=== PATIENT | female | born 1975 | race Caucasian/White ===

== ENCOUNTER → 2022-08-11 13:26 | Day surgery (SDC) | payer BC, SELFPAY ==
[2022-08-11 13:40] VITALS: BP 114/64; PULSE 87; RESP 18; TEMP 36.8; O2SAT 99
[2022-08-11 14:19] LABS: Basophils % 2.8 %; Eosinophils # 0.1 10^3/uL (0.0-0.8); Eosinophils % 7.3 %; Hematocrit 37.6 % (37.0-47.0); Hemoglobin 12.2 g/dL (11.5-15.3); Lymphocytes # 0.3 10^3/uL (0.8-4.8); Lymphocytes % 23.9 %; Mean Corpuscular HGB Conc 32.4 g/dL (30.0-36.0); Mean Corpuscular Hemoglobin 29.3 pg (28.0-34.0); Mean Corpuscular Volume 90.2 fl (81-99); Mean Platelet Volume 11.3 fL (7.4-10.4); Monocytes # 0.1 10^3/uL (0.2-0.9); Monocytes % 8.3 %; Neutrophils % 46.7 %; Nucleated Red Blood Cells % 0 %; Platelet Count 111 10^3/cmm (130-400); Red Blood Count 4.17 10^6/uL (4.1-5.3); Red Cell Distribution Width 11.8 % (12.1-15.1); White Blood Count 1.1 10^3/uL (4.0-10.0)
[2022-08-11 14:25] LABS: Albumin Level 4.1 g/dL (3.5-5.2); Alkaline Phosphatase 64 U/L (35-105); Blood Urea Nitrogen 8 mg/dL (6-20); Calcium 8.4 mg/dL (8.5-10.5); Carbon Dioxide 25 mmol/L (22-29); Chloride 100 mmol/L (98-107); Globulin 2.6 g/dL (1.3-4.6); Glomerular Filtration Rate 133.4 mL/min (90-130); Glucose 99 mg/dL (65-115); Osmolality Calculated 278 mOsm/kg (285-295); Sodium 135 mmol/L (136-145); Total Bilirubin 0.5 mg/dL (0.15-1.2); Total Protein 6.7 g/dL (6.6-8.7)
[2022-08-11 14:27] LABS: Alanine Aminotransferase 61 U/L (0-33); Anion Gap 14.4 (5-19); Aspartate Amino Transferase 36 U/L (0-32); Potassium 4.4 mmol/L (3.5-5.1)
[2022-08-11 14:48] LABS: Neutrophils # 0.51 10^3/uL (1.8-7.7); Slide Review Slide Review Perform
--- NOTE | 2022-08-11 15:21 | PC.NURSE ---
Pt to GI infusions for PICC dressing change and lab draw. Critical neutrophil count 0.51 called to Patricia at [facility]. Information to be relayed to Dr. Loya. No new orders at this time.
== END ==
PROVIDERS: PCP Internal Medicine; Visit Provider Internal Medicine Medical Oncology
DX: C50.412 Malignant neoplasm of upper-outer quadrant of left female breast (principal); E03.9 Hypothyroidism, unspecified; Z51.11 Encounter for antineoplastic chemotherapy
CPT/HCPCS: 36592; 80053; 85025

== ENCOUNTER 2022-08-20 11:38 | Outpatient (RCR) | payer BC, SELFPAY ==
[2022-08-17 10:15] VITALS: BP 114/84; PULSE 85; RESP 18; TEMP 36.8; O2SAT 98
[2022-08-17 10:47] LABS: Basophils # 0.1 10^3/uL (0.0-0.1); Basophils % 0.9 %; Eosinophils # 0.1 10^3/uL (0.0-0.8); Eosinophils % 0.5 %; Hematocrit 38.4 % (37.0-47.0); Hemoglobin 12.3 g/dL (11.5-15.3); Lymphocytes # 1.2 10^3/uL (0.8-4.8); Lymphocytes % 9.6 %; Mean Corpuscular Hemoglobin 29.1 pg (28.0-34.0); Mean Platelet Volume 10.2 fL (7.4-10.4); Monocytes # 0.8 10^3/uL (0.2-0.9); Monocytes % 6.1 %; Neutrophils # 9.61 10^3/uL (1.8-7.7); Nucleated Red Blood Cells % 0.2 %; Platelet Count 197 10^3/cmm (130-400); Red Blood Count 4.22 10^6/uL (4.1-5.3); Red Cell Distribution Width 12.4 % (12.1-15.1); White Blood Count 12.9 10^3/uL (4.0-10.0)
[2022-08-17 11:10] LABS: Slide Review Slide Review Perform
[2022-08-20 11:40] VITALS: BP 124/70; PULSE 71; RESP 18; TEMP 36.2; O2SAT 98
[2022-08-20 12:10] LABS: Basophils # 0.1 10^3/uL (0.0-0.1); Basophils % 1.1 %; Eosinophils # 0.1 10^3/uL (0.0-0.8); Eosinophils % 0.6 %; Hematocrit 36.1 % (37.0-47.0); Hemoglobin 11.5 g/dL (11.5-15.3); Lymphocytes # 1.1 10^3/uL (0.8-4.8); Lymphocytes % 12.5 %; Mean Corpuscular HGB Conc 31.9 g/dL (30.0-36.0); Mean Corpuscular Hemoglobin 29.3 pg (28.0-34.0); Mean Corpuscular Volume 92.1 fl (81-99); Mean Platelet Volume 9.8 fL (7.4-10.4); Monocytes # 0.5 10^3/uL (0.2-0.9); Monocytes % 5.8 %; Neutrophils # 7.07 10^3/uL (1.8-7.7); Neutrophils % 78.2 %; Nucleated Red Blood Cells % 0 %; Platelet Count 191 10^3/cmm (130-400); Red Blood Count 3.92 10^6/uL (4.1-5.3); Red Cell Distribution Width 12.4 % (12.1-15.1)
[2022-08-20 12:35] LABS: Alkaline Phosphatase 76 U/L (35-105); Blood Urea Nitrogen 7 mg/dL (6-20); Calcium 9.5 mg/dL (8.5-10.5); Carbon Dioxide 25 mmol/L (22-29); Chloride 102 mmol/L (98-107); Globulin 2.8 g/dL (1.3-4.6); Glomerular Filtration Rate 90.5 mL/min (90-130); Glucose 84 mg/dL (65-115); Osmolality Calculated 279 mOsm/kg (285-295); Sodium 136 mmol/L (136-145); Total Bilirubin 0.2 mg/dL (0.15-1.2); Total Protein 6.8 g/dL (6.6-8.7)
[2022-08-20 12:38] LABS: Alanine Aminotransferase 22 U/L (0-33); Anion Gap 13.9 (5-19); Aspartate Amino Transferase 26 U/L (0-32); Potassium 4.9 mmol/L (3.5-5.1)
== END 2022-08-25 10:26 | disposition home or self-care (01) ==
LOC: GILAB 11:38
PROVIDERS: PCP Internal Medicine; Visit Provider Internal Medicine Medical Oncology
DX: C50.412 Malignant neoplasm of upper-outer quadrant of left female breast (principal)
CPT/HCPCS: 36592; 80053; 85025; 96365

== ENCOUNTER 2022-09-16 12:08 | Outpatient (RCR) | payer BC, SELFPAY ==
[2022-09-03 11:50] VITALS: BP 107/69; PULSE 91; RESP 18; TEMP 36.1; O2SAT 99; BMI 29.6
[2022-09-03 12:08] LABS: Hematocrit 36.7 % (37.0-47.0); Hemoglobin 11.7 g/dL (11.5-15.3); Mean Corpuscular HGB Conc 31.9 g/dL (30.0-36.0); Mean Corpuscular Hemoglobin 29.1 pg (28.0-34.0); Mean Corpuscular Volume 91.3 fl (81-99); Mean Platelet Volume 10.5 fL (7.4-10.4); Platelet Count 196 10^3/cmm (130-400); Red Blood Count 4.02 10^6/uL (4.1-5.3); Red Cell Distribution Width 13.2 % (12.1-15.1); White Blood Count 20.2 10^3/uL (4.0-10.0)
[2022-09-03 12:59] LABS: Slide Review Slide Review Perform
[2022-09-03 13:01] LABS: Absolute Eosinophils 0.4 10^3/cmm (0.0-0.7); Absolute Neutrophil 9.3 10^3/cmm (1.4-6.5); Absolute Segmented Neutrophil 6.5 10/cmm (1.6-7.1); Band Neutrophils Absolute 2.8 10^3/cmm (0.0-1.2); Basophils Absolute 0.2 10^3/cmm (0.0-0.2); Blastocytes 4 % (0-0); Eosinophils 2 %; Lymphocytes 17 %; Lymphocytes Absolute 3.4 10^3/cmm (1.2-3.4); Monocytes Absolute 1.2 10^3/cmm (0.1-0.6); Pathology Refferal Yes; Platelet Estimate Normal (Normal); Segmented Neutrophils 32 %; Total Cells Counted 100 (0-100)
--- NOTE | 2022-09-03 13:11 | PC.NURSE ---
Labs drawn via PICC. CMP hemolyzed x 2. Peripheral draw performed and did not hemolyze.
[2022-09-03 13:12] LABS: Alanine Aminotransferase 22 U/L (0-33); Albumin Level 4.3 g/dL (3.5-5.2); Alkaline Phosphatase 81 U/L (35-105); Anion Gap 14.1 (5-19); Aspartate Amino Transferase 20 U/L (0-32); Blood Urea Nitrogen 7 mg/dL (6-20); Calcium 9.1 mg/dL (8.5-10.5); Carbon Dioxide 27 mmol/L (22-29); Chloride 100 mmol/L (98-107); Globulin 2.5 g/dL (1.3-4.6); Glomerular Filtration Rate 90.5 mL/min (90-130); Glucose 92 mg/dL (65-115); Osmolality Calculated 282 mOsm/kg (285-295); Potassium 4.1 mmol/L (3.5-5.1); Sodium 137 mmol/L (136-145); Total Bilirubin 0.2 mg/dL (0.15-1.2); Total Protein 6.8 g/dL (6.6-8.7)
--- NOTE | 2022-09-03 13:24 | PC.NURSE ---
Critical lab result of blast cells called to CYRUS Ortiz RN. Results to be passed on to Dr. Loya.
[2022-09-07 07:15] VITALS: BP 129/60; PULSE 78; RESP 18; TEMP 379.4; TEMP 715; O2SAT 97
[2022-09-07 07:43] LABS: Hematocrit 35.6 % (37.0-47.0); Hemoglobin 11.2 g/dL (11.5-15.3); Mean Corpuscular HGB Conc 31.5 g/dL (30.0-36.0); Mean Corpuscular Hemoglobin 29.2 pg (28.0-34.0); Mean Platelet Volume 9.8 fL (7.4-10.4); Platelet Count 211 10^3/cmm (130-400); Red Blood Count 3.83 10^6/uL (4.1-5.3); Red Cell Distribution Width 13.7 % (12.1-15.1); White Blood Count 15.8 10^3/uL (4.0-10.0)
[2022-09-07 08:06] LABS: Slide Review Slide Review Perform
[2022-09-07 08:09] LABS: Absolute Segmented Neutrophil 11.4 10/cmm (1.6-7.1); Band Neutrophils Absolute 2.4 10^3/cmm (0.0-1.2); Lymphocytes 4 %; Monocytes Absolute 0.8 10^3/cmm (0.1-0.6); Segmented Neutrophils 72 %; Total Cells Counted 100 (0-100)
[2022-09-07 08:10] LABS: Absolute Neutrophil 13.7 10^3/cmm (1.4-6.5); Anisocytosis Trace; Eosinophils 0 %; Lymphocytes Absolute 0.6 10^3/cmm (1.2-3.4); Platelet Estimate Normal (Normal); Smudge Cells Trace
[2022-09-10 07:42] LABS: Basophils # 0.1 10^3/uL (0.0-0.1); Basophils % 1.1 %; Eosinophils # 0.1 10^3/uL (0.0-0.8); Eosinophils % 0.8 %; Hematocrit 35.7 % (37.0-47.0); Hemoglobin 11.3 g/dL (11.5-15.3); Lymphocytes # 0.7 10^3/uL (0.8-4.8); Lymphocytes % 11.5 %; Mean Corpuscular HGB Conc 31.7 g/dL (30.0-36.0); Mean Corpuscular Hemoglobin 28.9 pg (28.0-34.0); Mean Corpuscular Volume 91.3 fl (81-99); Mean Platelet Volume 9.5 fL (7.4-10.4); Monocytes # 0.6 10^3/uL (0.2-0.9); Monocytes % 9.1 %; Neutrophils # 4.66 10^3/uL (1.8-7.7); Neutrophils % 75.7 %; Nucleated Red Blood Cells % 0 %; Platelet Count 161 10^3/cmm (130-400); Red Blood Count 3.91 10^6/uL (4.1-5.3); Red Cell Distribution Width 13.8 % (12.1-15.1); White Blood Count 6.2 10^3/uL (4.0-10.0)
[2022-09-10 07:52] VITALS: BP 110/66; PULSE 80; RESP 18; TEMP 36; O2SAT 98
[2022-09-10 07:59] LABS: Alanine Aminotransferase 39 U/L (0-33); Albumin Level 3.9 g/dL (3.5-5.2); Alkaline Phosphatase 81 U/L (35-105); Blood Urea Nitrogen 12 mg/dL (6-20); Calcium 8.7 mg/dL (8.5-10.5); Carbon Dioxide 26 mmol/L (22-29); Chloride 101 mmol/L (98-107); Globulin 2.5 g/dL (1.3-4.6); Glomerular Filtration Rate 90.5 mL/min (90-130); Glucose 102 mg/dL (65-115); Osmolality Calculated 282 mOsm/kg (285-295); Sodium 136 mmol/L (136-145); Total Bilirubin 0.2 mg/dL (0.15-1.2); Total Protein 6.4 g/dL (6.6-8.7)
[2022-09-10 08:07] LABS: Anion Gap 13.7 (5-19); Aspartate Amino Transferase 37 U/L (0-32); Potassium 4.7 mmol/L (3.5-5.1)
[2022-09-16 11:45] VITALS: BP 113/79; PULSE 86; RESP 18; TEMP 36.4; O2SAT 100
== END 2022-09-22 23:59 | disposition home or self-care (01) ==
LOC: GILAB 12:08
PROVIDERS: PCP Internal Medicine; Visit Provider Internal Medicine Medical Oncology
DX: C50.412 Malignant neoplasm of upper-outer quadrant of left female breast (principal); E03.9 Hypothyroidism, unspecified; Z51.11 Encounter for antineoplastic chemotherapy
CPT/HCPCS: 36415; 36592; 80053; 80503; 85007; 85025

== ENCOUNTER 2022-10-01 12:00 | Outpatient (RCR) | payer BC, SELFPAY ==
[2022-09-24 12:15] LABS: Hematocrit 34.2 % (37.0-47.0); Mean Corpuscular HGB Conc 32.2 g/dL (30.0-36.0); Mean Corpuscular Hemoglobin 29.4 pg (28.0-34.0); Mean Corpuscular Volume 91.4 fl (81-99); Mean Platelet Volume 10.4 fL (7.4-10.4); Platelet Count 226 10^3/cmm (130-400); Red Blood Count 3.74 10^6/uL (4.1-5.3); Red Cell Distribution Width 14.5 % (12.1-15.1); White Blood Count 12.5 10^3/uL (4.0-10.0)
[2022-09-24 12:51] VITALS: BP 124/69; PULSE 91; RESP 18; TEMP 36.4; O2SAT 97
[2022-09-24 12:53] LABS: Alanine Aminotransferase 29 U/L (0-33); Albumin Level 3.9 g/dL (3.5-5.2); Alkaline Phosphatase 83 U/L (35-105); Blood Urea Nitrogen 7 mg/dL (6-20); Carbon Dioxide 24 mmol/L (22-29); Chloride 99 mmol/L (98-107); Globulin 2.7 g/dL (1.3-4.6); Glomerular Filtration Rate 90.5 mL/min (90-130); Glucose 96 mg/dL (65-115); Osmolality Calculated 280 mOsm/kg (285-295); Sodium 136 mmol/L (136-145); Total Bilirubin 0.2 mg/dL (0.15-1.2); Total Protein 6.6 g/dL (6.6-8.7)
[2022-09-24 12:56] LABS: Anion Gap 17.4 (5-19); Aspartate Amino Transferase 28 U/L (0-32); Potassium 4.4 mmol/L (3.5-5.1)
[2022-09-24 12:59] LABS: Slide Review Slide Review Perform
[2022-09-24 13:00] LABS: Absolute Eosinophils 0.2 10^3/cmm (0.0-0.7); Basophils Absolute 0.1 10^3/cmm (0.0-0.2); Eosinophils 2 %; Lymphocytes 15 %; Lymphocytes Absolute 1.9 10^3/cmm (1.2-3.4); Monocytes Absolute 2.4 10^3/cmm (0.1-0.6); Segmented Neutrophils 40 %; Total Cells Counted 100 (0-100)
[2022-09-24 13:01] LABS: Platelet Estimate Normal (Normal)
[2022-10-01 12:11] VITALS: RESP 18
[2022-10-01 12:20] LABS: Basophils # 0.1 10^3/uL (0.0-0.1); Basophils % 0.5 %; Eosinophils % 0.3 %; Hematocrit 36.3 % (37.0-47.0); Hemoglobin 11.4 g/dL (11.5-15.3); Lymphocytes % 10.6 %; Mean Corpuscular HGB Conc 31.4 g/dL (30.0-36.0); Mean Corpuscular Hemoglobin 29.1 pg (28.0-34.0); Mean Corpuscular Volume 92.6 fl (81-99); Monocytes # 0.7 10^3/uL (0.2-0.9); Monocytes % 7.7 %; Neutrophils # 7.41 10^3/uL (1.8-7.7); Neutrophils % 79.8 %; Nucleated Red Blood Cells % 0 %; Platelet Count 192 10^3/cmm (130-400); Red Blood Count 3.92 10^6/uL (4.1-5.3); Red Cell Distribution Width 15.4 % (12.1-15.1); White Blood Count 9.3 10^3/uL (4.0-10.0)
[2022-10-01 12:31] LABS: Alanine Aminotransferase 22 U/L (0-33); Albumin Level 4.1 g/dL (3.5-5.2); Alkaline Phosphatase 83 U/L (35-105); Blood Urea Nitrogen 10 mg/dL (6-20); Calcium 8.9 mg/dL (8.5-10.5); Carbon Dioxide 24 mmol/L (22-29); Chloride 102 mmol/L (98-107); Globulin 2.6 g/dL (1.3-4.6); Glomerular Filtration Rate 90.5 mL/min (90-130); Glucose 132 mg/dL (65-115); Osmolality Calculated 287 mOsm/kg (285-295); Sodium 138 mmol/L (136-145); Total Bilirubin 0.2 mg/dL (0.15-1.2); Total Protein 6.7 g/dL (6.6-8.7)
[2022-10-01 12:42] LABS: Anion Gap 16.5 (5-19); Aspartate Amino Transferase 25 U/L (0-32); Potassium 4.5 mmol/L (3.5-5.1)
== END 2022-10-23 23:59 | disposition home or self-care (01) ==
LOC: GILAB 12:00
PROVIDERS: PCP Internal Medicine; Visit Provider Internal Medicine Medical Oncology
DX: C50.412 Malignant neoplasm of upper-outer quadrant of left female breast (principal); E03.9 Hypothyroidism, unspecified; Z51.11 Encounter for antineoplastic chemotherapy; D72.829 Elevated white blood cell count, unspecified
CPT/HCPCS: 36592; 80053; 85007; 85025

== ENCOUNTER 2022-11-19 10:46 | Outpatient (RCR) | payer BC, SELFPAY | END 2022-11-22 23:59 | disposition home or self-care (01) | LOC: SPT 10:46 | PROVIDERS: PCP Internal Medicine; Visit Provider Internal Medicine Medical Oncology | DX: I89.0 Lymphedema, not elsewhere classified (principal) | CPT/HCPCS: 97161 ==

== ENCOUNTER 2022-11-23 06:00 | Outpatient (RCR) | payer BC, SELFPAY | END 2022-12-23 23:59 | disposition home or self-care (01) | LOC: SPT 06:00 | PROVIDERS: PCP Internal Medicine; Visit Provider Internal Medicine Medical Oncology | DX: I89.0 Lymphedema, not elsewhere classified (principal) | CPT/HCPCS: 97140 ==

== ENCOUNTER 2022-11-23 11:54 | Outpatient (CLI) | payer BC, SELFPAY ==
--- NOTE | 2022-11-23 12:14 | XRR_ITS ---
PROCEDURE INFORMATION: Exam: XR Chest Exam date and time: 11/23/2022 12:21 PM Age: 46 years old Clinical indication: Other: Respiratory crackles; Prior surgery; Surgery type: Double mastectomy; Patient HX: --recent breast cancer, finished chemo. New crackles RT anterior upper chest. TECHNIQUE: Imaging protocol: Radiologic exam of the chest. Views: 2 views. COMPARISON: CR XR KUB [id number] 02/17/2019 11:50 AM FINDINGS: Lungs: Unremarkable. No consolidation. Pleural spaces: Unremarkable. No pleural effusion. No pneumothorax. Heart/Mediastinum: Unremarkable. No cardiomegaly. Bones/joints: Deformity distal left clavicle presumed postsurgical in nature. Surgical clips projecting over the left lateral chest wall. XR/XR chest 2V* [id number] IMPRESSION: Negative chest. No active disease.
== END 2022-11-23 11:55 | disposition home or self-care (01) ==
PROVIDERS: PCP Internal Medicine; Visit Provider Nurse Practitioner Family
DX: R09.89 Other specified symptoms and signs involving the circulatory and respiratory systems (principal)
CPT/HCPCS: 71046

== ENCOUNTER 2022-12-22 07:22 | Outpatient (CLI) | payer BC, SELFPAY ==
--- NOTE | 2022-12-22 07:36 | CT_ITS ---
WS: [id number] CT chest w con* [id number] HISTORY: MASTODYNIA/ELEVATED WHITE BLOOD CELL COUNT/BREAST CA TECHNIQUE: Axial imaging performed through the thorax. Coronal and sagittal reformats are submitted. All CT scans at [facility] use at least one of these dose optimization techniques: automated exposure control; mA and/or kV adjustment per patient size (includes targeted exams where dose is mat ched to clinical indication); or iterative reconstruction. CONTRAST: Omnipaque 350; 100 mL IV. DLP: 281.71 mGy.cm COMPARISON: Chest radiograph 11/23/2022 Lungs and central airway: No pulmonary nodule or mass. No bronchiectasis or pneumonia. Lungs are well -aerated. No endobronchial lesions. Pleura: Normal. No pleural effusion. Heart and pericardium: Normal size heart with no pericardial effusion. Mediastinum and ruth: No mediastinum or hilar adenopathy. Vessels: Normal size aortic and pulmonary artery. No coronary artery calcifications. Chest wall and lower neck: Postsurgical clips upper outer quadrant RIGHT breast towards the axilla. T here is mild skin thickening involving the LEFT breast. Probably from prior treatment or postreductio n breast surgery. Upper abdomen: There are 2 hypervascular masses in the RIGHT lobe of the liver. The largest measures 3.0 x 1.6 cm. Smaller more inferior mass measures 1.6 x 1.3 cm. No bile duct dilatation. No adrenal m ass. Osseous structures: No destructive process. CT/CT chest w con* [id number] IMPRESSION: 1. No pulmonary mass, nodule or pneumonia. 2. No mediastinal or hilar adenopathy. 3. Postsurgical changes LEFT breast from prior lumpectomy. 4. 2 hypervascular masses in the RIGHT lobe of the liver. These are most likel y benign hemangiomas. These will need to be further evaluated. MRI with and wit hout contrast of the liver or CT dual phase (portal venous and delayed) imaging can be obtained.
[2022-12-22] MEDS: iohexol 350 mg/mL 500 mL Btl (per mL) IV (07:56)
== END 2022-12-22 07:23 | disposition home or self-care (01) ==
LOC: RAD 07:23
PROVIDERS: PCP Internal Medicine; Visit Provider Internal Medicine Medical Oncology
DX: C50.412 Malignant neoplasm of upper-outer quadrant of left female breast (principal); N64.4 Mastodynia; D72.829 Elevated white blood cell count, unspecified; E03.9 Hypothyroidism, unspecified
CPT/HCPCS: 71260; Q9967

== ENCOUNTER 2022-12-29 10:38 | Outpatient (CLI) | payer BC, SELFPAY ==
--- NOTE | 2022-12-29 10:54 | MR_ITS ---
WS: [id number] MRI ABDOMEN with and without CONTRAST. COMPARISON: Chest CT 12/22/2022 Multiplanar, multisequence imaging is performed with and without contrast. Dynamic phase postcontras t imaging. MultiHance 18 mL IV. History: Liver lesions seen on recent chest CT. History of breast cancer. Liver is normal size. No significant hepatic steatosis. T2 bright hepatic lesions are identified with in the periphery of the RIGHT lobe of the liver. The more superior lesion measures 11 x 9 mm. The mor e inferior posterior lesion measures 15 x 12 mm. There is an additional posterior 6 mm T2 bright lesi on also noted in the RIGHT lobe of the liver. On the dynamic imaging these liver lesions fill-in similar to the blood pool phase on all sequences. These are most typical for hemangiomas. There is no evidence for metastatic lesion. No portal vein th rombosis. Hepatic veins are normal size. Normal SMV. Normal size spleen. Normal pancreas and adrenal glands. Visualized kidneys are normal. Normal aorta. No ascites or pleural effusions. MR/MR abdomen wo/w con* [id number] IMPRESSION: 1. RIGHT hepatic masses x3 identified. On dynamic imaging these follow blood p ool on all sequences therefore most consistent with hemangiomas. 2. No ascites.
== END 2022-12-29 10:39 | disposition home or self-care (01) ==
PROVIDERS: PCP Internal Medicine; Visit Provider Internal Medicine Medical Oncology
DX: C50.412 Malignant neoplasm of upper-outer quadrant of left female breast (principal); Z92.21 Personal history of antineoplastic chemotherapy; K76.9 Liver disease, unspecified; R16.0 Hepatomegaly, not elsewhere classified
CPT/HCPCS: 74183

== ENCOUNTER 2023-05-27 16:15 | Outpatient (CLI) | payer BC, SELFPAY ==
--- NOTE | 2023-05-27 16:22 | XRR_ITS ---
PROCEDURE INFORMATION: Exam: XR Right Ankle Exam date and time: 05/27/2023 4:42 PM Age: 47 years old Clinical indication: Injury or trauma; Other: Twisted ankle while running; Sprain or strain; Right; Injury date: 05/21/23; Injury details: HX of breast cancer; Additional info: Right ankle joint pain TECHNIQUE: Imaging protocol: Radiologic exam of the right ankle. Views: 1 or 2 views. COMPARISON: No relevant prior studies available. FINDINGS: Bones/joints: The bones are intact. No fracture. Soft tissues: Lateral soft tissue swelling. XR/XR ankle RT 2V [id number] IMPRESSION: No acute skeletal findings.
== END 2023-05-27 16:16 | disposition home or self-care (01) ==
PROVIDERS: PCP Internal Medicine; Visit Provider Nurse Practitioner Family
DX: M25.571 Pain in right ankle and joints of right foot (principal); X50.1XXA Overexertion from prolonged static or awkward postures, initial encounter
CPT/HCPCS: 73600

== ENCOUNTER 2025-06-13 10:17 | Outpatient (CLI) | payer OTHER, SELFPAY ==
--- NOTE | 2025-06-13 10:21 | XR_ITS ---
WS: [id number] SCREENING DEXA SCAN [employer] [facility] CLINICAL INFORMATION: ASYMPTOMATIC POSTMENOPAUSAL STATUS COMPARISON: None. FINDINGS: The L1-L4 bone mineral density measures 1.173 g/cm2. This corresponds to a T score score of -0.1 and Z score of -0.4. Left femoral neck bone mineral density measures 0.969 g/cm2. This corresponds to a T score of -0.3 and Z score of -0.4. Right femoral neck bone mineral density measures 0.943 g/cm2. This corresponds to a T score -0.5of and Z score of -0.6. Mean femoral neck bone mineral density measures 0.956 g/cm2. This corresponds to a T score of -0.4 and Z score of -0.5. XR/XR DEXA axial skeleton* [id number] IMPRESSION: Normal bone mineralization. Patient's FRAX calculated 10 year probability for major osteoporotic fracture i s 4.2% and osteoporotic hip fracture is 0.5%.
== END 2025-06-13 10:18 | disposition home or self-care (01) ==
LOC: RAD 10:17
PROVIDERS: PCP Internal Medicine; Visit Provider Internal Medicine
DX: Z13.820 Encounter for screening for osteoporosis (principal)
CPT/HCPCS: 77080